=== PATIENT | male | born 1995 | race Caucasian/White ===

== ENCOUNTER 2024-05-09 21:29 | Emergency (ER) | payer BC ==
[~2024-05-09] VITALS: Ht 193 cm; Wt 97.0 kg
[2024-05-09 21:39] VITALS: BP 129/86; PULSE 64; RESP 18; TEMP 99; O2SAT 96
[2024-05-09] MEDS ORDERED: AUG875T PO (22:40)
[2024-05-09] MEDS: TETANUS-DIPTH-ACEL PERTUSSIS 0.5ML SYR Tdap IM ONE (23:10)
== END 2024-05-09 23:00 | disposition home or self-care (01) ==
LOC: EEVIPCON 21:29 → ER 21:29
DX: S61.451A Open bite of right hand, initial encounter (principal); W50.3XXA Accidental bite by another person, initial encounter; Y93.89 Activity, other specified; Y92.89 Other specified places as the place of occurrence of the external cause; Y99.8 Other external cause status
CPT/HCPCS: 90471; 90715